=== PATIENT | male | born 1975 ===

== ENCOUNTER 2019-11-07 15:00 | Emergency (ER) | payer SELFPAY ==
[~2019-11-07] VITALS: Ht 180.3 cm; Wt 95.4 kg
--- NOTE | 2019-11-07 16:24 | NUR ---
VALUATION MANAGER: PT TO ROOM FROM RUFINA ARMENDARIZ.
--- NOTE | 2019-11-07 16:47 | NUR ---
PT STATES LOSS OF TASTE AND SLIGHT SOB X3 DAYS. PT IN NO RESPIR DISTRESS, VSS. ERMD AT BEDSIDE FOR ASSESSMENT. WILL FOLLOW ORDERS.
[2019-11-07 17:16] LABS: BASOPHILS # (AUTO) 0.07 x10^3/uL (0-0.1); BASOPHILS % (AUTO) 1 % (0-1); EOSINOPHILS # (AUTO) 0.05 x10^3/uL (0-0.4); EOSINOPHILS % (AUTO) 1 % (1-7); LYMPHOCYTES # (AUTO) 1.64 x10^3/uL (1-3.4); LYMPHOCYTES % (AUTO) 21 % (22-44); MD NO; MEAN CORPUSCULAR HEMOGLOBIN 33.8 pg (27.5-34.5); MEAN CORPUSCULAR HGB CONC 34.8 g/dL (33.2-36.2); MEAN CORPUSCULAR VOLUME 96.9 fL (81-97); MEAN PLATELET VOLUME 7.2 fL (7.4-10.4); MONOCYTES # (AUTO) 0.65 x10^3/uL (0.2-0.8); MONOCYTES % (AUTO) 9 % (2-9); NEUTROPHILS # (AUTO) 5.26 x10^3/uL (1.8-6.8); NEUTROPHILS % (AUTO) 69 % (42-75); PLATELET COUNT 278 x10^3/uL (130-400); RED BLOOD COUNT 4.15 x10^6/uL (4.38-5.82); RED CELL DISTRIBUTION WIDTH 12.8 % (9.4-14.8)
[2019-11-07 17:23] LABS: ALBUMIN 3.6 g/dL (3.4-5.0); ANION GAP 2 mmol/L (5-15); CALCIUM 8.7 mg/dL (8.5-10.1); CHLORIDE 112 mmol/L (98-107); CREATININE 0.95 mg/dL (0.7-1.3)
[2019-11-07 18:36] VITALS: BP 121/76
--- NOTE | 2019-11-07 18:36 | NUR ---
PT D/C'D PER ORDERS. HAS ALL OWN BELONGINGS UPON D/C.
== END 2019-11-07 19:27 ==
LOC: ED 19:20
DX: B34.9 Viral infection, unspecified (principal); J02.9 Acute pharyngitis, unspecified; Z20.828 Contact with and (suspected) exposure to other viral communicable diseases; R51 Headache; M79.10 Myalgia, unspecified site; R94.31 Abnormal electrocardiogram [ECG] [EKG]; R07.9 Chest pain, unspecified
CPT/HCPCS: 36415; 71045; 72220; 80048; 82040; 85025; 87635; 93005; 99285